=== PATIENT | male | born 1970 | race Caucasian/White ===

== ENCOUNTER 2022-09-01 04:56 | Observation (INO) ==
--- NOTE | 2022-08-01 14:43 | PAT Medication Instructions ---
Medication Instructions Date of Service August 01, 2022 Home Medications BETAMETHASONE SHAGUFTA (Valisone 0.1% Oint) 30 g topical DAILY PRN eczema bupropion HCl 150 mg 24 hr tablet, extended release 150 mg PO BID bzgvlqb-ehjkfpcqv-gurr 333 mg-133 mg-8.3 mg tablet 1 tab PO QAM duloxetine 60 mg capsule,delayed release 60 mg PO QAM fluorouracil 5 % topical cream 1 applic topical BID PRN eczema hydrochlorothiazide 25 mg tablet 25 mg PO QAM levalbuterol tartrate 45 mcg/actuation aerosol inhaler 2 inh inhalation Q6H PRN Shortness Of Breath lisinopril 5 mg tablet 5 mg PO QAM metformin 500 mg tablet 500 mg PO BID methocarbamol 500 mg tablet 500 mg PO TID omega 5-bzj-lca-fish oil 1,000 mg (120 mg-180 mg) capsule (Fish Oil) 1 cap PO QAM omeprazole 40 mg capsule,delayed release 40 mg PO QAM cetirizine 10 mg tablet 10 mg PO QAM diltiazem HCl 300 mg capsule,24 hr,extended release 300 mg PO QAM duloxetine 30 mg capsule,delayed release 30 mg PO QAM flaxseed 1,000 mg capsule 1,000 mg PO QAM fluticasone fur. 100 mcg-umeclid 62.5 mcg-vilant 25 mcg inhalat.powder (Trelegy Ellipta) 1 inh inhalation QAM ibuprofen 800 mg tablet 800 mg PO Q6H PRN Pain potassium 99 mg tablet 99 mg PO QAM rosuvastatin 5 mg tablet 5 mg PO QAM verapamil 180 mg tablet,extended release 180 mg PO QAM ASK your surgeon for instructions ibuprofen 800 mg tablet 800 mg PO Q6H PRN Pain STOP taking 2 weeks before surgery omega 3-guh-agy-fish oil 1,000 mg (120 mg-180 mg) capsule (Fish Oil) 1 cap PO QAM flaxseed 1,000 mg capsule 1,000 mg PO QAM STOP taking 24 hours before surgery BETAMETHASONE SHAGUFTA (Valisone 0.1% Oint) 30 g topical DAILY PRN eczema fluorouracil 5 % topical cream 1 applic topical BID PRN eczema DO NOT take the morning of surgery wyhvbcy-bdmgolrdl-grsb 333 mg-133 mg-8.3 mg tablet 1 tab PO QAM hydrochlorothiazide 25 mg tablet 25 mg PO QAM lisinopril 5 mg tablet 5 mg PO QAM metformin 500 mg tablet 500 mg PO BID methocarbamol 500 mg tablet 500 mg PO TID cetirizine 10 mg tablet 10 mg PO QAM potassium 99 mg tablet 99 mg PO QAM Take morning of surgery With a small sip of water, OTHERWISE NOTHING TO EAT OR DRINK AFTER MIDNIGHT: bupropion HCl 150 mg 24 hr tablet, extended release 150 mg PO BID duloxetine 60 mg capsule,delayed release 60 mg PO QAM levalbuterol tartrate 45 mcg/actuation aerosol inhaler 2 inh inhalation Q6H PRN Shortness Of Breath (use if needed; please bring with you to hospital day of surgery if possible) omeprazole 40 mg capsule,delayed release 40 mg PO QAM diltiazem HCl 300 mg capsule,24 hr,extended release 300 mg PO QAM duloxetine 30 mg capsule,delayed release 30 mg PO QAM fluticasone fur. 100 mcg-umeclid 62.5 mcg-vilant 25 mcg inhalat.powder (Trelegy Ellipta) 1 inh inhalation QAM rosuvastatin 5 mg tablet 5 mg PO QAM verapamil 180 mg tablet,extended release 180 mg PO QAM Take evening before surgery bupropion HCl 150 mg 24 hr tablet, extended release 150 mg PO BID levalbuterol tartrate 45 mcg/actuation aerosol inhaler 2 inh inhalation Q6H PRN Shortness Of Breath (if needed) metformin 500 mg tablet 500 mg PO BID methocarbamol 500 mg tablet 500 mg PO TID Other Notes If you have any questions please call us at [phone] or [phone] or [phone] or [phone]
--- NOTE | 2022-08-06 09:43 | Anesthesiology Consultation ---
Date of Service August 06, 2022 Assessment & Plan (1) Encounter for pre-operative examination: Chart Review Chart Review: Acceptable Risk for Surgery and Patient seen in Pre Admission Testing -Discussed with Dr. Cutler - patient is NOT an Outpatient Joint candidate Per PAT appt on 08/06/22, patient denies any recent travel or large group activities. Pt is vaccinated for Covid. Will leave to surgeon's discretion if preop Covid testing needed. Educated on importance of using Covid precautions one week prior to surgery Pt last seen by cardio 10/15/21= patient seen for cardiology follow-up. From a cardiac standpoint he is feeling well. Shortness of breath is at baselinedoes have history of COPD. Status post thoracic aortic aneurysm repairstable. AVNRT/history of PSVTstable continue diltiazem. Hypertensionwell-controlled. Dyslipidemiastart Crestor daily. Follow-up in 1 year. Teaching & Discussion Pre-Anesthesia Teaching/Discussion Notes: Instructed NPO after midnight before surgery,except medications with 15 cc of water. Medication instructions provided according to the PAT guidelines. History Surgery Operation Date: 09/01/22 12:30 Proposed Procedures p Right Unicompartment Knee Arthroplasty Versus - Brannon Pickens DO s Right Total Knee Arthroplasty - Brannon Pickens DO Height/Weight Height: 6 ft 1 in Weight: 116.9 kg Allergies Allergy/AdvReac Type Severity Reaction Status Date / Time codeine Allergy Mild HIVES Verified 08/01/22 07:55 Penicillins Allergy Mild HIVES Verified 08/01/22 07:55 aspirin Allergy Unknown HIVES Verified 08/01/22 07:55 Iodinated Contrast Media Allergy Unknown Hives Verified 08/01/22 07:55 Medications Home Medications Medication Instructions Recorded Confirmed Last Taken BETAMETHASONE SHAGUFTA (Valisone 0.1% 30 g topical DAILY PRN eczema ##0 04/17/16 08/01/22 Unknown Oint) bupropion HCl 150 mg 24 hr tablet, 150 mg PO BID 03/26/22 08/01/22 Unknown extended release ynyhnsx-gxwbwoiiw-gazj 333 mg-133 1 tab PO QAM 03/26/22 08/01/22 Unknown mg-8.3 mg tablet duloxetine 60 mg capsule,delayed 60 mg PO QAM 03/26/22 08/01/22 Unknown release fluorouracil 5 % topical cream 1 applic topical BID PRN eczema 03/26/22 08/01/22 Unknown hydrochlorothiazide 25 mg tablet 25 mg PO QAM 03/26/22 08/01/22 Unknown levalbuterol tartrate 45 2 inh inhalation Q6H PRN Shortness 03/26/22 08/01/22 Unknown mcg/actuation aerosol inhaler Of Breath lisinopril 5 mg tablet 5 mg PO QAM 03/26/22 08/01/22 Unknown metformin 500 mg tablet 500 mg PO BID 03/26/22 08/01/22 Unknown methocarbamol 500 mg tablet 500 mg PO TID 03/26/22 08/01/22 Unknown omega 9-kwb-guc-fish oil 1,000 mg 1 cap PO QAM 03/26/22 08/01/22 Unknown (120 mg-180 mg) capsule (Fish Oil) omeprazole 40 mg capsule,delayed 40 mg PO QAM 03/26/22 08/01/22 Unknown release cetirizine 10 mg tablet 10 mg PO QAM 08/01/22 08/01/22 Unknown diltiazem HCl 300 mg capsule,24 300 mg PO QAM 08/01/22 08/01/22 Unknown hr,extended release duloxetine 30 mg capsule,delayed 30 mg PO QAM 08/01/22 08/01/22 Unknown release flaxseed 1,000 mg capsule 1,000 mg PO QAM 08/01/22 08/01/22 Unknown fluticasone fur. 100 mcg-umeclid 1 inh inhalation QAM 08/01/22 08/01/22 Unknown 62.5 mcg-vilant 25 mcg inhalat.powder (Trelegy Ellipta) ibuprofen 800 mg tablet 800 mg PO Q6H PRN Pain 08/01/22 08/01/22 Unknown potassium 99 mg tablet 99 mg PO QAM 08/01/22 08/01/22 Unknown rosuvastatin 5 mg tablet 5 mg PO QAM 08/01/22 08/01/22 Unknown verapamil 180 mg tablet,extended 180 mg PO QAM 08/01/22 08/01/22 Unknown release Past Medical History Medical History (Updated 08/06/22 @ 09:50 by Cherelle Du PA-C) Chronic back pain f/u pain management at [facility] Chronic obstructive pulmonary disease daily and prn inh Breathing stable GERD (gastroesophageal reflux disease) Well controlled and stable History of COVID-19 end of 2020, [facility] test, not hosp; head cold symptoms>resolved. 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 Arroyo 04/2016 Hx of peripheral neuropathy Mostly noted to toes Hyperlipidemia EMANUEL (obstructive sleep apnea) Declines CPAP Seen in weight management clinic [facility] nabila cabrales; currently duloxetine, metformin and wellbutrin weight loss Exercise / Class Metabolic Activity III < 4 Walking/Shop/Light housework (no chest pain or SOB with flat surface ambulation (difficulty with stairs due to neuropathy)) Past Surgical History Surgical History History of cardiac radiofrequency ablation 2015, [facility]; f/u dr. freeman, [facility] History of carpal tunnel surgery of right wrist History of esophagogastroduodenoscopy (EGD) w/dilation x2 History of lumbar fusion L2-S1 Hx of abdominal surgery 1987, "intestines came detached from where they should be and wrapped around his stomach"; appendix removed as well Hx of aortic aneurysm repair 2015, [facility] Hx of appendectomy done with abdominal surgery in 1987 Hx of cardiac catheterization ~2015, [facility] Hx of colonoscopy Hx of decompression of ulnar nerve w/transposition Hx of inguinal hernia repair Hx of nasal septoplasty Hx of umbilical hernia repair Hx of vasectomy Past Anesthesia History No Hx of Anesthesia Complications and No Family Hx of Anesthesia Complications History of PONV No Hx of PONV and No Hx of Motion Sickness Social History Smoking Status: Never smoker Do You Dip or Chew Tobacco: No (hx-quit 2015; advised) Hx Alcohol Use: No Hx Substance Use: No substance use type: does not use Review of Systems Hx of blood transfusion s/p heart surgery 2016 Patient denies chest pain, shortness of breath, dyspnea on exertion, cough, w heezing, palpitations. No hx of seizures, stroke, IN. Physical Exam Vital Signs VITALS BP 137/76 P 91 TEMP 98.3 SP02 95% RESP 16 Constitutional no acute distress ENMT Mouth: no TMJ clicking Thyromental Distance: > or= 3.5 Finger Breadths (4.0) Mallampati Class: III Top front bridge Neck + thick neck; neck extension not limited Respiratory normal respiratory effort; no respiratory distress Auscultation: lungs clear to auscultation bilaterally; no wheezes Cardiovascular Rate/Rhythm: regular rate and regular rhythm Heart Sounds: no murmur Vessels: no carotid bruit Musculoskeletal Spine: no pain with cervical ROM Extremities: extremities normal to inspection Psychiatric Orientation: alert Lab Results Anesthesia Preop Results Results Anesthesia Widget: WBC 12.10 K/ul (4.8-10.8) H 08/06/22 Hgb 15.2 g/dl (14.0-18.0) 08/06/22 Hct 42.9 % (42.0-52.0) 08/06/22 Plt 225 K/uL (130-400) 08/06/22 Na 137 mmol/L (136-145) 08/06/22 K 3.7 mmol/L (3.5-5.1) 08/06/22 Cl 103 mmol/L (98-107) 08/06/22 CO2 25 mmol/L (21-32) 08/06/22 BUN 11 mg/dl (6-23) 08/06/22 Creat 1.05 mg/dl (0.6-1.4) 08/06/22 Glucose Level 105 mg/dl (70-99(Fasting)) H 08/06/22 PT 10.7 Seconds (9.0-12.0) 08/06/22 PTT 24.8 Seconds (21.0-31.0) 08/06/22 INR 1.0 (0.9-1.1) 08/06/22 HA1c 5.2 % (4.5-5.6) 08/06/22 Blood Type A Positive 08/06/22 Antibody Screen NEGATIVE 08/06/22 Testing Electrocardiogram Date: 08/06/22 Sinus rhythm with fusion complexes at 85 bpm Left axis deviation Right bundle branch block Chest X-Ray Date: 07/16/22 Findings: + NAD Echocardiogram Date: 01/15/21 EF: 53% Other Findings: no LVH or no diastolic dysfunction Septal motion is abnormal consistent with post operative state Non dilated cardiac chambers Aortic root is repaired- resupension of the aortic leaflets, reimplantation of coronary arteries, "Fadi" repair 04/28/16 Mild MR. COVID-19 Risk Screen Screening Information COVID-19 Screen Date: 08/06/22 Exposure 21 Days Family/Household +COVID Last 21 Days: No Exposure 10 Days Any COVID Exposure Last 10 Days: No Symptoms Last 10 Days Experienced COVID Sx Last 10 Days: No + COVID 0-90 Days COVID + in Last 0-90 Days: No Risk Plan COVID Risk Plan: No Risk Identified Patient Education COVID Preop Screening Education Complete: Yes
[~2022-09-01 04:56] MED LIST: ALLERGY Noted to ORDERED Medication SCH
[2022-09-01] MEDS ORDERED: TRANEXAMIC ACID 1,000 MG **IV Intra-op IV SCH (06:00)
[2022-09-01] MEDS ORDERED: ceFAZolin 2000MG 2,000 MG/15 ML SYR IV SCH (06:00)
[2022-09-01] MEDS ORDERED: FAMOTIDINE 20 MG TAB PO SCH (06:00)
[2022-09-01] MEDS ORDERED: GABAPENTIN 900 MG DOSE PO SCH (06:00)
[2022-09-01] MEDS ORDERED: dexAMETHasone 4 MG TAB PO SCH (06:00)
[2022-09-01] MEDS ORDERED: LR 500ML BOLUS, THEN 15ML/HR IV SCH (06:00)
[2022-09-01] MEDS ORDERED: ORTHO JOINT MIX INFIL SCH (06:00)
[2022-09-01] MEDS ORDERED: LR 60ML/HR IV SCH (06:00)
[2022-09-01] MEDS ORDERED: TRANEXAMIC ACID 1,000 MG **IV Pre-op IV SCH (06:00)
[2022-09-01] MEDS ORDERED: ACETAMINOPHEN 500 MG TAB PO SCH (06:00)
[2022-09-01] MEDS ORDERED: BUPIVACAINE 0.25% PF 30 ML VIAL ONE (06:20)
[2022-09-01] MEDS ORDERED: BUPIVACAINE 0.5 % 5 MG/1 ML PF 10ML VIAL ONE (06:20)
[2022-09-01] MEDS ORDERED: Nursing to Pharmacy Communication SCH (06:30)
--- NOTE | 2022-09-01 06:37 | History & Physical Bridge Note ---
Date of Service September 01, 2022 History & Physical Bridge Note I have examined the patient, reviewed the History & Physical and in the interval since the performance of the History & Physical I have noted the following changes of clinical significance: no changes noted
[2022-09-01] MEDS ORDERED: LIDOCAINE 2% MPF LOCAL 5 ML VIAL ONE (06:42)
[2022-09-01] MEDS ORDERED: MIDAZOLAM HCL 1 MG/ML 2ML VIAL ONE (06:42)
[2022-09-01] MEDS ORDERED: fentaNYL citrate PF 100 MCG/2 ML VIAL ONE (06:42)
[2022-09-01] MEDS ORDERED: PROPOFOL IV EMULSION 10 MG/ML 20 ML VIAL IV ONE (06:42)
[2022-09-01] MEDS ORDERED: ALBUTEROL 0.083% NEBU SOLN 3 ML VIAL INH PRN (07:21)
[2022-09-01] MEDS ORDERED: ACETAMINOPHEN 1,000 MG/100 ML VIAL IV STA (07:21)
[2022-09-01] MEDS ORDERED: ePHEDrine sulfate 50 MG/ML AMP IV PRN (07:21)
[2022-09-01] MEDS ORDERED: ATROPINE SULFATE 0.1 MG/ML 10ML SYR IV PRN (07:21)
[2022-09-01] MEDS ORDERED: ONDANSETRON INJ 2 MG/ML 2 ML VIAL IV PRN (07:21)
[2022-09-01] MEDS ORDERED: HYDROmorphone INJ 2 MG/ML SYR/VIAL ONE (07:23)
[2022-09-01] MEDS ORDERED: VASOPRESSIN 20 UNIT/ML VIAL ONE (07:40)
[2022-09-01] MEDS ORDERED: SUCCINYLCHOLINE CHLORIDE 20 MG/ML 10 ML VIAL IV ONE (07:47)
[2022-09-01] MEDS ORDERED: ROCURONIUM BROMIDE 10 MG/ML 5 ML VIAL IV ONE (07:47)
[2022-09-01] MEDS ORDERED: SUGAMMADEX SODIUM 200 MG/2 ML VIAL IV ONE (08:29)
--- NOTE | 2022-09-01 08:31 | Operative Report ---
PG Post Operative Report Pre & Post Diagnosis Operation Date: 09/01/22 07:00 Pre-Op Diagnosis: Right Knee Osteoarthritis Post-Op Diagnosis: Right Knee Osteoarthritis I identified the patient and participated in the time-out.: Yes Procedure Operation Date: 09/01/22 07:00 Actual Procedures p Right Unicompartmental Knee Arthroplasty(Right) - Brannon Pickens DO Surgeon Brannon Pickens DO Stencil Inspector Brannon Cheng PA-C Estimated Blood Loss 30 Findings Consistent with Post-Op Diagnosis Specimens Right femoral tibial bone Description of Procedure Implants used: I used a Valorie persona partial knee replacement system with a size 7 femoral component, a size H tibial component, and a 9 mm polyethylene insert. All components were cemented with Palacos G cement. On September 01, 2022 Beka arrived at [facility] for the above procedure. He was seen in the preoperative holding area and the operative extremity was identified and signed. He was given a preoperative antibiotic. He was taken back the operating room and laid on the table in supine position. He was put under general anesthesia. The right knee was prepped and draped in sterile fashion. A timeout was done. The patient and the operative extremity was properly identified. A midline incision was made just medial to the patella. Dissection was taken down through the fascia. A medial parapatellar slightly mid vastus arthrotomy was used. A portion of the fat pad was excised and the medial retinaculum was released. The knee was then exposed. There was severe medial compartmental arthritis. There was some grade 2 chondral changes in the trochlea. The lateral compartment looked fine and the ACL was intact. I decided to proceed with a partial knee replacement surgery. An external tibial guide was placed. The medial tibial plateau was then resected. A 9 mm extension block seem to be a good fit. The extension block was pinned and the distal femur was then resected. The knee was then flexed. A size 7 mm distal femoral block seem to be the best fit. The resection block was then pinned into place. Posterior cut was made followed by the chamfer cut. 2 drill holes were placed. The tibia was then exposed. The medial meniscus was removed. The tibia measured to be a size H. The tibial trial was then punched and drilled. The trial femoral component was then impacted in the place. A size 9 mm polyethylene insert seem to be a good fit. The trials were all removed. The final size H tibial component and size 7 femoral component was then cemented into place with Palacos cement. A 9 mm polyethylene insert was then snapped into place. The knee was brought through full range of motion and felt to be stable. The surrounding soft tissues were then injected with 50 cc of an orthopedic pain control cocktail. Hemostasis was obtained. The extensor mechanism was then closed with #1 Vicryl suture. Skin was closed with 2-0 Vicryl, 3 oh VueLock, and nadia. He was then placed in a soft compressive dressing. He was then extubated and transferred to a [facility]. He was taken to the postanesthesia care unit in stable condition. He tolerated the procedure well. Brannon Cheng PA-C, was present for the entire procedure. He was critical for patient positioning, prepping, draping, retraction exposure, wound closure and application of sterile dressing. I attest to the content of the Intraoperative Record and any orders documented therein. Any exceptions are noted below.
[2022-09-01] MEDS: fentaNYL citrate PF 100 MCG/2 ML VIAL IV PRN ×2 (09:15→09:20)
--- NOTE | 2022-09-01 09:44 | XRay Report ---
XR knee RT 1 or 2V routine CLINICAL HISTORY: Surgical Post Op COMPARISON: Knee radiograph August 06, 2022. FINDINGS: Medial compartment arthroplasty of the right knee is noted. There is no periprosthetic fra cture. Skin nadia are present. No unexpected radiopaque foreign bodies are present. Suspected joint bodies within the lateral compartment are again noted. These are unchanged. IMPRESSION: Expected postoperative findings following medial compartment arthroplasty of the right kn ee. ACT 112: Negative or not required by law. Electronically signed by: Srini Park M.D. 09/01/2022 9:43 AM
[2022-09-01] MEDS ORDERED: MAGNESIUM HYDROXIDE SUSP 30 ML UDC PO PRN (09:51)
[2022-09-01] MEDS ORDERED: METOCLOPRAMIDE HCL INJ 5 MG/ML 2 ML VIAL IV PRN (09:51)
[2022-09-01] MEDS ORDERED: bisacodyL 10 MG SUPP PR PRN (09:51)
[2022-09-01] MEDS ORDERED: NALOXONE HCL 0.4 MG/1 ML VIAL/CARP IV PRN (09:51)
[2022-09-01] MEDS ORDERED: LEVALBUTEROL TARTRATE 15 GM HFA.AER.AD INH PRN (09:51)
[2022-09-01] MEDS ORDERED: HYDROmorphone INJ 0.5 MG/0.5 ML SYR IV PRN (09:51)
[2022-09-01] MEDS ORDERED: NON-FORMULARY MEDICATION (Potassium 99 mg Tablet) PO SCH (09:51)
--- NOTE | 2022-09-01 09:55 | Anesthesiology Progress Note ---
Date of Service September 01, 2022 Anesthesia Post Procedure Vital Signs Vital Signs: Temp Pulse Pulse Resp BP Pulse Ox O2 Del Method 09/01/22 09:50 36.4 C L 86 18 127/79 92 Room Air 09/01/22 09:40 36.8 C 78 20 125/74 94 Nasal Cannula 09/01/22 09:30 36.8 C 76 18 121/78 92 Nasal Cannula 09/01/22 09:20 77 14 131/81 93 Oxymask 09/01/22 09:10 84 16 138/70 93 Oxymask 09/01/22 09:00 75 16 125/81 94 Oxymask 09/01/22 08:50 36.2 C L 76 16 123/73 94 Oxymask 09/01/22 05:32 36.6 C 82 20 147/98 H 96 Room Air O2 Flow Rate 09/01/22 09:50 09/01/22 09:40 3 09/01/22 09:30 3 09/01/22 09:20 4 09/01/22 09:10 4 09/01/22 09:00 6 09/01/22 08:50 8 09/01/22 05:32 Pain Intensity Right Knee: Pain Intensity: 5 Transfer of Care Handoff Completed per policy Notes Mental Status: alert / awake / arousable Patient Amnestic to Procedure: Yes Nausea / Vomiting: adequately controlled Pain: adequately controlled Airway Patency, RR, SpO2: stable & adequate BP & HR: stable & adequate Hydration State: stable & adequate Anesthetic Complications: no major complications apparent and Pt Satisfied with anesthetic care
[2022-09-01] MEDS ORDERED: lisinopril 5 MG TAB PO SCH ×2 (10:15→21:00)
[2022-09-01] MEDS: oxyCODONE HCL IR 5 MG TAB (IMMEDIATE RELEASE) PO PRN ×3 (10:17→20:40)
[2022-09-01] MEDS: SODIUM CHLORIDE 0.9% 1000ML 1,000 ML IV SCH ×2 (10:20→19:40)
[2022-09-01] MEDS: ASPIRIN 81 MG ECTAB PO SCH ×2 (11:12→20:41)
[2022-09-01] MEDS: ROSUVASTATIN CALCIUM 5 MG TAB PO SCH (11:13)
[2022-09-01] MEDS: buPROPion XL 150 MG TABCR PO SCH ×2 (11:13→22:23)
[2022-09-01] MEDS: DULoxetine HCL 60 MG CAP PO SCH (11:14)
[2022-09-01] MEDS: DULoxetine HCL 30 MG CAP PO SCH (11:14)
[2022-09-01] MEDS: metFORMIN HCL 500 MG TAB PO SCH ×2 (11:15→22:23)
[2022-09-01] MEDS: METHOCARBAMOL 500 MG TABLET PO SCH ×3 (11:16→20:41)
[2022-09-01] MEDS: FLUTICASONE FUROATE 100MCG 14 PUFFS/INHALER INH SCH (11:16)
[2022-09-01] MEDS: UMECLIDINIUM/VILANTEROL 62.5/25MCG 7 PUFFS/INHALER INH SCH (11:17)
[2022-09-01] MEDS: dilTIAZem HCL 300 MG CAPCR PO SCH (11:18)
[2022-09-01] MEDS: DOCUSATE SODIUM 100 MG CAP PO SCH ×2 (11:19→20:41)
[2022-09-01] MEDS: hydroCHLOROthiazide 25 MG TAB PO SCH (11:20)
[2022-09-01] MEDS: PANTOprazole 40 MG TAB PO SCH (11:20)
[2022-09-01] MEDS: CETIRIZINE HCL 10 MG TABLET PO SCH (11:20)
[2022-09-01] MEDS: MULTIVITAMIN TAB PO SCH (11:20)
[2022-09-01] MEDS: KETOROLAC 30 MG/ML VIAL IV SCH ×3 (11:21→22:24)
[2022-09-01] MEDS: ceFAZolin 2000MG 2,000 MG/15 ML SYR IV SCH ×2 (15:14→22:24)
[2022-09-01] MEDS ORDERED: SENNA 8.6 MG TAB PO SCH (21:00)
[2022-09-02] MEDS: KETOROLAC 30 MG/ML VIAL IV SCH (03:57)
[2022-09-02] MEDS: oxyCODONE HCL IR 5 MG TAB (IMMEDIATE RELEASE) PO PRN ×2 (04:01→08:48)
--- NOTE | 2022-09-02 06:45 | Orthopedic Progress Note ---
Date of Service September 02, 2022 Subjective On September 01, 2022 Beka arrived at [facility] and underwent a right partial knee replacement without complication. He had a general anesthetic. Postoperatively he was started on aspirin for DVT prophylaxis and transferred to the general orthopedic floors. His hospital course was uneventful. On postop day #1, his vital signs were stable and his pain was well controlled. He was able to participate well with physical therapy doing ambulation and range of motion exercises. He was then discharged home. He will follow-up with orthopedics in 2 weeks.. Review of Systems All systems reviewed & are unremarkable except as noted in HPI & below. Physical Exam . Results & Data Results & Data Laboratory Results . Diagnostic Findings . PG Care Time/CCT Total # of Minutes Spent Total Time Spent with Patient: Total time spent is greater than 50% in coordination of care (as documented) at patient's floor/unit and/or counseling patient: Coding Level of Care Code 20735 Post Operative Follow-Up Diagnoses
--- NOTE | 2022-09-02 06:47 | Orthopedic Progress Note ---
Date of Service September 02, 2022 Assessment & Plan (1) Status post right partial knee replacement: Overall he is doing fairly well. Is not having much pain in the right knee. He will be seen by physical therapy today for ambulation and range of motion exercises. He is on aspirin for DVT prophylaxis. He can be discharged home later today. He will follow-up with orthopedics in 2 weeks. Ernesto Ireland was seen and examined at bedside this morning. Overall is doing fairly well. He is not having too much pain in his knee. He has been up and ambulating to the bathroom. He has no complaints.. Review of Systems All systems reviewed & are unremarkable except as noted in HPI & below. Physical Exam On physical examination of the right knee, the dressing is clean and dry. He has active dorsiflexion plantarflexion of his right ankle.. Results & Data Results & Data Laboratory Results . Diagnostic Findings Postoperative x-rays of the right knee show the prosthesis to be in anatomic alignment without any evidence of fracture, education, or loosening. PG Care Time/CCT Total # of Minutes Spent Total Time Spent with Patient: Total time spent is greater than 50% in coordination of care (as documented) at patient's floor/unit and/or counseling patient: Coding Level of Care Code 51785 Post Operative Follow-Up Diagnoses Status post right partial knee replacement Z96.651
--- NOTE | 2022-09-02 06:47 | Discharge Summary ---
Date of Service September 02, 2022 Principal Diagnosis Same as "Discharge Diagnosis" noted below under Discharge Instructions. Discharge Exam On physical examination of the right knee, the dressing is clean and dry. He has active dorsiflexion plantarflexion of his right ankle.. Discharge Data Procedures Performed Operation Date: 09/01/22 07:00 Actual Procedures p Right Unicompartmental Knee Arthroplasty(Right) - Brannon Pickens DO Ordered Studies 09/01/22 05:00 US - OR guided needle placemen Routine Hospital Course (1) Status post right partial knee replacement: On September 01, 2022 Beka arrived at [facility] and underwent a right partial knee replacement without complication. He had a general anesthetic. Postoperatively he was started on aspirin for DVT prophylaxis and transferred to the general orthopedic floors. His hospital course was uneventful. On postop day #1, his vital signs were stable and his pain was well controlled. He was able to participate well with physical therapy doing ambulation and range of motion exercises. He was then discharged home. He will follow-up with orthopedics in 2 weeks.. PG Care Time/CCT Total # of Minutes Spent Total Time Spent with Patient: Total time spent is greater than 50% in coordination of care (as documented) at patient's floor/unit and/or counseling patient: Discharge Plan Discharge Items Patient Disposition: Home - Home Health Services Reason For Visit: DJD Right Knee Discharge Diagnosis: Right knee replacement Activity: Per Instructions section Non-emergency contact: Surgeon Call non-emergency contact if: your wound has increased redness and your wound has increased drainage Follow-up/Referrals: Kimi Driscoll DO [Primary Care Provider] - Diet: Regular Addtl Attending Provider Instructions: Activity and Therapy Recommendations: * If you are using [facility] then therapy will be provided at your home until they feel you have accomplished all of your goals. * If you are using [facility] then Physical Therapy will be provided until they feel you are ready to start Outpatient Physical Therapy. * If you are not using home therapy then Outpatient Physical Therapy should start about 3-5 days from your day of surgery. Therapy will last about 6-10 weeks * It is important not to put a pillow under your knee when you are relaxing or sleeping. It is just as important to make sure you are getting your knee perfectly straight as it is to regain your knee bend. * You were shown a series of exercises in the hospital. Do these exercises three times each day including the exercises you were shown in physical therapy. * Get up and walk several times each day. For the first four weeks, try not to stand or walk for more than one hour at a time. If you do stand or walk for more than one hour, you will not hurt anything, but your leg will likely swell. * As you feel comfortable, you may change from the walker or crutches to a cane and then to independent walking. Medications: * Narcotic You will likely be sent home from the hospital with a prescription for the narcotic pain medication that worked best throughout your stay. * Aspirin Most patients will be required to take Aspirin 81mg twice a day for 6 weeks after surgery. This is obtained [id number] and a prescription is not necessary. * Other medications may be prescribed for specific circumstances. If you have any questions, please call the office at . * Resume previous home medications unless otherwise instructed TEDs/Elastic Stockings: The white elastic stockings help limit swelling and prevent blood clots from forming in your legs.~ The more you wear them, the more they work. Wear them for six weeks. Dressing Care: The dressing can be changed after physical therapy on postop day #1. Daily dry dressing changes for a few days, especially if the incision is still draining some. If the incision is not draining then you may leave the nadia open to air. If there is a little bit of drainage or if the nadia are getting stuck on your clothing then cover the incision with a dry dressing. The nadia will be removed at your 2 week follow-up appointment. Showering: You may shower 5 days from the day of surgery as long as the incision is no longer draining. You may shower with the nadia exposed. Let soapy water run over the nadia and pat them dry. Do not scrub or soak the incision. Things To Watch For: * Drainage from the incision site that occurs more than one week after your surgery. * Increased redness at the incision site. * Fever above 102 degrees Fahrenheit. * Unusual chest pain or shortness of breath. * Call [facility] at with any of the above problem s Follow-Up Visit: Follow-up with Dr. Pickens's PA (Brannon Cheng) 2-3 weeks after your day of surgery. He will remove your nadia and answer any questions. If you have any additional questions or concerns, Dr Pickens is usually in the office at the same time and will be available An appointment was probably scheduled when you signed-up for surgery in the office. If you have any questions call Office Instructions: More detailed instructions as well as Frequently Asked Questions were provided in a folder by our office when you signed-up for surgery. Please review these instructions when you get home. If you have any further questions or concerns, please feel free to call the office at [phone] Pending Studies at Discharge: No Stand-Alone Forms: My [facility] Medications and DC Order Prescriptions: New oxycodone-acetaminophen 5-325 mg tablet 1 tab PO Q6H PRN (Reason: pain) Qty: 30 0RF Continued BETAMETHASONE SHAGUFTA (Valisone 0.1% Oint) 45 APPLN/15 GM ointment 30 g Topical DAILY PRN (Reason: eczema) Qty: 0 Wegovy 0.25 mg/0.5 mL pen injector 0.25 mg subcut Q7D bupropion HCl 150 mg tablet extended release 24 hr 150 mg PO BID [id number] 333-133-8.3 mg tablet 1 tab PO QAM duloxetine 60 mg capsule,delayed release(DR/EC) 60 mg PO QAM Rx Instructions: combined w/30mg tablet for total of 90mg omega 9-coa-acc-fish oil [Fish Oil] 1,000 mg (120 mg-180 mg) capsule 1 cap PO QAM fluorouracil 5 % cream 1 applic topical BID PRN (Reason: eczema) hydrochlorothiazide 25 mg tablet 25 mg PO QAM levalbuterol tartrate 45 mcg/actuation HFA aerosol inhaler 2 inh inhalation Q6H PRN (Reason: Shortness Of Breath) lisinopril 5 mg tablet 5 mg PO QAM metformin 500 mg tablet 500 mg PO BID methocarbamol 500 mg tablet 500 mg PO TID omeprazole 40 mg capsule,delayed release(DR/EC) 40 mg PO QAM cetirizine 10 mg Tablet 10 mg PO QAM ibuprofen 800 mg Tablet 800 mg PO Q6H PRN (Reason: Pain) diltiazem HCl 300 mg Capsule,Extended Release 24 Hr 300 mg PO QAM potassium 99 mg Tablet 99 mg PO QAM rosuvastatin 5 mg Tablet 5 mg PO QAM duloxetine 30 mg Capsule,Delayed Release(Dr/Ec) 30 mg PO QAM flaxseed 1,000 mg Capsule 1,000 mg PO QAM Trelegy Ellipta 100-62.5-25 mcg Blister With Device 1 inh INHALATION QAM Changed aspirin 81 mg Tablet,Chewable 81 mg PO BID 42 Days Qty: 0 0RF Admission Data Admit Date/Time: 09/01/22 08:44 Attending Provider: Brannon Pickens Admit Provider: Brannon Pickens Primary Care Provider: Kimi Driscoll
[2022-09-02] MEDS ORDERED: dexAMETHasone 4 MG TAB PO SCH (08:00)
[2022-09-02] MEDS: UMECLIDINIUM/VILANTEROL 62.5/25MCG 7 PUFFS/INHALER INH SCH (08:43)
[2022-09-02] MEDS: FLUTICASONE FUROATE 100MCG 14 PUFFS/INHALER INH SCH (08:43)
[2022-09-02] MEDS: MULTIVITAMIN TAB PO SCH (08:44)
[2022-09-02] MEDS: dilTIAZem HCL 300 MG CAPCR PO SCH (08:44)
[2022-09-02] MEDS: ASPIRIN 81 MG ECTAB PO SCH (08:44)
[2022-09-02] MEDS: ROSUVASTATIN CALCIUM 5 MG TAB PO SCH (08:45)
[2022-09-02] MEDS: DOCUSATE SODIUM 100 MG CAP PO SCH (08:45)
[2022-09-02] MEDS: metFORMIN HCL 500 MG TAB PO SCH (08:45)
[2022-09-02] MEDS: DULoxetine HCL 30 MG CAP PO SCH (08:45)
[2022-09-02] MEDS: DULoxetine HCL 60 MG CAP PO SCH (08:46)
[2022-09-02] MEDS: PANTOprazole 40 MG TAB PO SCH (08:46)
[2022-09-02] MEDS: buPROPion XL 150 MG TABCR PO SCH (08:46)
[2022-09-02] MEDS: hydroCHLOROthiazide 25 MG TAB PO SCH (08:47)
[2022-09-02] MEDS: CETIRIZINE HCL 10 MG TABLET PO SCH (08:47)
[2022-09-02] MEDS: METHOCARBAMOL 500 MG TABLET PO SCH (08:47)
== END 2022-09-02 10:35 | disposition home health service (06) ==
LOC: ASU 04:56 → 3E 04:56